=== PATIENT | female | born 1940 | race Caucasian/White ===

== ENCOUNTER 2017-07-09 10:22 | Outpatient (CLI) | payer OTHER ==
[~2017-07-09 10:22] MED LIST: COZAAR50 MG PO; CRESTOR10 MG PO; LIBRAX CAPSULE1 CA1 PO; MIRALAX12 EA PO; PRILOSEC2.5 MG; PRILOSEC40 MG PO; PROTONIX40 MG PO; TRANXENE T-TAB7.5 MG PO; VERAPAMIL ER180 MG; VERELAN180 MG PO
== END 2017-07-09 11:57 | disposition home or self-care (01) ==
LOC: LAB 10:22
DX: D50.8 Other iron deficiency anemias (principal); D51.1 Vitamin B12 deficiency anemia due to selective vitamin B12 malabsorption with proteinuria; D51.3 Other dietary vitamin B12 deficiency anemia; D51.8 Other vitamin B12 deficiency anemias; E03.8 Other specified hypothyroidism; N81.6 Rectocele; I10 Essential (primary) hypertension; E11.9 Type 2 diabetes mellitus without complications; M81.0 Age-related osteoporosis without current pathological fracture; E55.9 Vitamin D deficiency, unspecified; K90.89 Other intestinal malabsorption; D55.0 Anemia due to glucose-6-phosphate dehydrogenase [G6PD] deficiency

== ENCOUNTER 2017-07-09 11:56 | Outpatient (CLI) | payer OTHER | END 2017-07-09 12:40 | disposition home or self-care (01) | LOC: SONOGRAMA 11:56 | DX: E04.2 Nontoxic multinodular goiter (principal); D50.8 Other iron deficiency anemias; D51.1 Vitamin B12 deficiency anemia due to selective vitamin B12 malabsorption with proteinuria; D51.3 Other dietary vitamin B12 deficiency anemia; D51.8 Other vitamin B12 deficiency anemias; E03.8 Other specified hypothyroidism; N81.6 Rectocele; I10 Essential (primary) hypertension; E11.9 Type 2 diabetes mellitus without complications; M81.0 Age-related osteoporosis without current pathological fracture; E06.4 Drug-induced thyroiditis ==

== ENCOUNTER 2017-10-06 09:31 | Outpatient (CLI) | payer OTHER | END 2017-10-06 09:33 | disposition home or self-care (01) | LOC: SONOGRAMA 09:31 | DX: E04.2 Nontoxic multinodular goiter (principal) ==

== ENCOUNTER 2019-01-21 10:45 | Outpatient (CLI) | payer OTHER | END 2019-01-21 10:58 | disposition home or self-care (01) | LOC: NUCLEAR 10:45 | DX: M81.0 Age-related osteoporosis without current pathological fracture (principal) ==

== ENCOUNTER 2019-04-24 12:10 | Inpatient (IN) | payer OTHER ==
[~2019-04-24] VITALS: Ht 157.5 cm; Wt 59.0 kg
[2019-05-04] MEDS ORDERED: TRANXENE T-TAB7.5 MG PO (14:49)
[2019-05-04] MEDS ORDERED: MONTELUKAST SOD10 MG PO (14:49)
[2019-05-04] MEDS ORDERED: MUCINEX600 MG PO (14:49)
[2019-05-04] MEDS ORDERED: TESSALON PERLE100 M1 PO (14:49)
[2019-05-04] MEDS ORDERED: VERAPAMIL ER180 MG PO (14:49)
[2019-05-04] MEDS ORDERED: CRESTOR10 MG PO (14:49)
[2019-05-04] MEDS ORDERED: PRILOSEC OTC20 MG PO (14:49)
[2019-05-04] MEDS ORDERED: POLY119PG PO (14:49)
[2019-05-04] MEDS ORDERED: COZAAR50 MG PO (14:49)
== END 2019-05-04 17:20 | disposition home or self-care (01) | DRG 193 ==
LOC: ER 12:10 → MEDJ 04-25 13:18
PROVIDERS: ADMIT Internal Medicine Geriatric Medicine
PROC: BB24ZZZ Computerized Tomography (CT Scan) of Bilateral Lungs (ICD-10-PCS; principal; 2019-04-25)
PROC: 3E0F7GC Introduction of Other Therapeutic Substance into Respiratory Tract, Via Natural or Artificial Opening (ICD-10-PCS; 2019-04-25)
PROC: 4A033R1 Measurement of Arterial Saturation, Peripheral, Percutaneous Approach (ICD-10-PCS; 2019-04-25)
PROC: 8E0ZXY6 Isolation (ICD-10-PCS; 2019-04-25)
DX: J10.00 Influenza due to other identified influenza virus with unspecified type of pneumonia (principal); J80 Acute respiratory distress syndrome; J45.41 Moderate persistent asthma with (acute) exacerbation; R22.1 Localized swelling, mass and lump, neck; I11.9 Hypertensive heart disease without heart failure; E86.0 Dehydration; E87.8 Other disorders of electrolyte and fluid balance, not elsewhere classified

== ENCOUNTER 2019-12-06 08:31 | Outpatient (CLI) | payer OTHER ==
[~2019-12-06 08:31] MED LIST changes: +MONTELUKAST SOD10 MG PO; +MUCINEX600 MG PO; +POLY119PG PO; +PRILOSEC OTC20 MG PO; +TESSALON PERLE100 M1 PO; +VERAPAMIL ER180 MG PO
== END 2019-12-06 08:38 | disposition home or self-care (01) ==
LOC: SONOGRAMA 08:31
PROVIDERS: ATTEND Otolaryngology
DX: E03.8 Other specified hypothyroidism (principal); E04.2 Nontoxic multinodular goiter

== ENCOUNTER 2020-07-05 10:26 | Outpatient (CLI) | payer OTHER | END 2020-07-05 10:31 | disposition home or self-care (01) | LOC: SONOGRAMA 10:26 | PROVIDERS: ATTEND Pathology Anatomic Pathology & Clinical Pathology | DX: E04.2 Nontoxic multinodular goiter (principal) ==

== ENCOUNTER 2020-09-06 09:00 | Outpatient (CLI) | payer OTHER | END 2020-09-06 09:01 | disposition home or self-care (01) | LOC: LAB 09:00 | PROVIDERS: ATTEND Internal Medicine Hematology & Oncology | DX: D50.8 Other iron deficiency anemias (principal); R79.9 Abnormal finding of blood chemistry, unspecified; I10 Essential (primary) hypertension; R74.02 Elevation of levels of lactic acid dehydrogenase [LDH]; K76.89 Other specified diseases of liver; D51.8 Other vitamin B12 deficiency anemias; D51.1 Vitamin B12 deficiency anemia due to selective vitamin B12 malabsorption with proteinuria; D51.3 Other dietary vitamin B12 deficiency anemia; K66.0 Peritoneal adhesions (postprocedural) (postinfection); N81.6 Rectocele; E11.9 Type 2 diabetes mellitus without complications; M81.0 Age-related osteoporosis without current pathological fracture; E04.2 Nontoxic multinodular goiter; K59.04 Chronic idiopathic constipation; E03.8 Other specified hypothyroidism ==

== ENCOUNTER → 2021-01-03 08:32 | Outpatient (CLI) | payer OTHER | END | disposition home or self-care (01) | LOC: LAB 08:32 | PROVIDERS: ATTEND Internal Medicine Hematology & Oncology | DX: I10 Essential (primary) hypertension (principal); D50.8 Other iron deficiency anemias; R79.89 Other specified abnormal findings of blood chemistry; R74.02 Elevation of levels of lactic acid dehydrogenase [LDH]; K76.89 Other specified diseases of liver; R97.0 Elevated carcinoembryonic antigen [CEA]; R97.8 Other abnormal tumor markers; E55.9 Vitamin D deficiency, unspecified; D51.8 Other vitamin B12 deficiency anemias; D69.6 Thrombocytopenia, unspecified; D51.1 Vitamin B12 deficiency anemia due to selective vitamin B12 malabsorption with proteinuria; D51.3 Other dietary vitamin B12 deficiency anemia; K66.0 Peritoneal adhesions (postprocedural) (postinfection); E11.9 Type 2 diabetes mellitus without complications; M81.0 Age-related osteoporosis without current pathological fracture; E04.2 Nontoxic multinodular goiter; K59.04 Chronic idiopathic constipation; E03.8 Other specified hypothyroidism ==

== ENCOUNTER 2021-02-13 12:42 | Outpatient (CLI) | payer OTHER | END 2021-02-13 12:44 | disposition home or self-care (01) | LOC: NUCLEAR 12:42 | PROVIDERS: ATTEND Internal Medicine Rheumatology | DX: M81.0 Age-related osteoporosis without current pathological fracture (principal) ==

== ENCOUNTER 2021-04-13 19:35 | Emergency (ER) | payer OTHER ==
[~2021-04-13] VITALS: Ht 157.5 cm; Wt 65.8 kg
== END 2021-04-14 00:58 | disposition home or self-care (01) ==
LOC: ER 19:35
DX: S83.282A Other tear of lateral meniscus, current injury, left knee, initial encounter (principal); M77.8 Other enthesopathies, not elsewhere classified; X50.9XXA Other and unspecified overexertion or strenuous movements or postures, initial encounter; Y93.89 Activity, other specified; Y92.89 Other specified places as the place of occurrence of the external cause; Y99.8 Other external cause status

== ENCOUNTER 2022-09-23 11:11 | Outpatient (CLI) | payer OTHER | END 2022-09-23 11:21 | disposition home or self-care (01) | LOC: SONOGRAMA 11:11 | PROVIDERS: ATTEND Internal Medicine Endocrinology, Diabetes & Metabolism | DX: E04.8 Other specified nontoxic goiter (principal) ==

== ENCOUNTER 2022-09-23 12:43 | Outpatient (CLI) | payer OTHER | END 2022-09-23 12:44 | disposition home or self-care (01) | LOC: LAB 12:43 | PROVIDERS: ATTEND Internal Medicine Endocrinology, Diabetes & Metabolism | DX: E21.3 Hyperparathyroidism, unspecified (principal) ==

== ENCOUNTER → 2022-11-12 11:42 | Outpatient (CLI) | payer OTHER | END | disposition home or self-care (01) | LOC: LAB 11:42 | PROVIDERS: ATTEND Radiology Diagnostic Radiology | DX: E21.0 Primary hyperparathyroidism (principal) ==

== ENCOUNTER 2022-11-14 07:58 | Outpatient (CLI) | payer OTHER | END 2022-11-14 08:09 | disposition home or self-care (01) | LOC: TOM 07:58 | DX: E21.0 Primary hyperparathyroidism (principal) | CPT/HCPCS: 70491; 71260; Q9965 ==

== ENCOUNTER 2023-12-31 12:54 | Emergency (ER) | payer OTHER ==
[~2023-12-31] VITALS: Ht 157.5 cm; Wt 65.8 kg
[~2023-12-31 12:54] MED LIST changes: +CIPRO500 MG PO; +COZAAR100 MG PO; +CRESTOR20 MG; +CRESTOR20 MG PO; +CYANOCOBAL1000 MCG/1; +CYANOCOBAL1000 MCG/1 IM; +D3 + K2 DOTS 11 EACH PO; +INTESTINEX680 M1 PO; +METOCLOPRAMIDE10 MG PO; +MIRALAX17 GM PO; +NEURONTIN300 MG PO; +NeurRONTin 250MG/5ML PO; +OMEPRAZOLE20 MG; +OMEPRAZOLE20 MG PO; +PERCOCET 5-3251 EACH PO; +RESTORIL15 MG PO; +TRAMADOL HCL-AP1 TAB PO; +VERELAN240 MG PO; +VITAMIN D32000 UNIT; +VITAMIN D32000 UNIT PO; +ZOCOR20 MG PO
[2023-12-31] MEDS ORDERED: ORPHENADRINE CITRATE 30 MG/ML AMPUL IM ONE (13:15)
[2023-12-31] MEDS ORDERED: TRIAMCINOLONE ACETONIDE 40 MG/ML VIAL IM ONE (13:15)
[2023-12-31] MEDS ORDERED: NORFLEX100MG PO (14:08)
== END 2023-12-31 14:25 | disposition home or self-care (01) ==
LOC: ER 12:55
DX: M54.89 Other dorsalgia (principal); M62.838 Other muscle spasm; N20.0 Calculus of kidney; I70.8 Atherosclerosis of other arteries; Z88.0 Allergy status to penicillin; Z88.2 Allergy status to sulfonamides
CPT/HCPCS: 72040; 72070; 72100; 96372; 99284; J2360; J3301

== ENCOUNTER 2025-03-10 11:05 | Outpatient (CLI) | payer OTHER ==
[~2025-03-10 11:05] MED LIST changes: +NORFLEX100MG PO
== END 2025-03-10 11:06 | disposition home or self-care (01) ==
LOC: NUCLEAR 11:05
PROVIDERS: ATTEND Internal Medicine Rheumatology
DX: M81.0 Age-related osteoporosis without current pathological fracture (principal)